=== PATIENT | female | born 1950 | race Caucasian/White ===

== ENCOUNTER → 2020-04-28 | Outpatient (REF) | payer MEDICARE, OTHER | LOC: M LAB REF 11:12 | PROVIDERS: ATTEND Nurse Practitioner Adult Health | DX: Z79.899 Other long term (current) drug therapy (principal) ==

== ENCOUNTER → 2020-09-22 | Outpatient (CLI) | payer MEDICARE, OTHER ==
--- NOTE | 2020-09-22 11:39 | REP ---
INDICATION: PAIN COMPARISON: None. TECHNIQUE: AP, lateral, bilateral oblique views left foot. FINDINGS: The osseous structures and joint spaces are intact and normal for age. Small calcaneal heel spur.. There is no evidence for acute fracture or dislocation. Surrounding soft tissues are unremarkable. No subcutaneous emphysema or radiodense foreign body. IMPRESSION: . No acute fracture or dislocation. <Electronically signed by Mani Osorio > 09/22/20 [id number]
--- NOTE | 2020-09-22 11:46 | REP ---
INDICATION: PAIN COMPARISON: None. TECHNIQUE: Four views left ankle. FINDINGS: There is no evidence of acute fracture, dislocation, or intrinsic bone disease.There is a small inferior calcaneal spur. The ankle mortise is anatomic. IMPRESSION: No fracture or dislocation. Mild inferior calcaneal spurring. <Electronically signed by Kun Alexandre > 09/22/20 [id number]
== END ==
LOC: M WUC 11:04
PROVIDERS: ATTEND Nurse Practitioner Adult Health
DX: M25.572 Pain in left ankle and joints of left foot (principal); M79.672 Pain in left foot

== ENCOUNTER → 2020-10-06 | Outpatient (CLI) | payer MEDICARE, OTHER ==
[~2020-10-06] MED LIST: PROHANCE 279.3MG/ML 15ML VIAL As Ordered ONE
--- NOTE | 2020-10-06 16:04 | REP ---
INDICATION: PERSONAL HISTORY OF MALIGNANT NEOPLASM OF BREAST. Status post bilateral lumpectomy in 2013. COMPARISON: Comparison bilateral breast MRI studies are dated June 30, 2018 and June 24, 2017. Comparison mammography March 09, 2018. TECHNIQUE: Three J[facility]yn MRI imaging was performed with a dedicated breast coil. Axial, coronal, and sagittal T1 and T2 weighted scans were obtained with and without fat saturation in the usual fashion. The study includes dynamically acquired post gadolinium-enhanced imaging with image subtraction. Maximum intensity projection and multi planar reformation imaging is included as well. This study is interpreted with the aid of ClearFitD, an FDA approved computer aided detection (CAD) software program, on a dedicated breast MRI workstation. The gadolinium enhancement dose is 12 mL of intravenous ProHance. FINDINGS: There is a moderate amount of fibroglandular tissue bilaterally corresponding with the mammographic pattern. There is post treatment fibrosis inferiorly and medially on the left and more laterally and inferiorly on the right. No chest wall abnormality is seen. There is minimal background parenchymal enhancement. There is no evidence of axillary lymphadenopathy or significant breast cystic change. High-resolution pre and post-contrast T1 and T2 weighted scans show no suspicious morphologic abnormality in either breast. Dynamically acquired sequential postcontrast images show no suspicious area of enhancement and washout kinetics in either breast to suggest malignancy. Subtraction images show no additional abnormality. IMPRESSION: BI-RADS category 2 benign stable bilateral breast MRI findings. <Electronically signed by Agus Copeland > 10/06/20 [id number]
== END ==
LOC: M RAD 10:50
PROVIDERS: ATTEND Physician Assistant
DX: Z85.3 Personal history of malignant neoplasm of breast (principal)
CPT/HCPCS: A9576; C8908

== ENCOUNTER → 2020-10-17 | Outpatient (CLI) | payer MEDICARE, OTHER ==
--- NOTE | 2020-10-17 16:16 | REP ---
INDICATION: LT ANKLE PAIN. COMPARISON: Radiographs 09/22/2020. TECHNIQUE: Multiple sequences are obtained in the axial, coronal and sagittal planes. FINDINGS: The Achilles, anterior tibial, posterior tibial, flexor hallucis longus, flexor digitorum longus and peroneal tendons are all intact without significant tenosynovitis. The anterior and posterior talofibular, calcaneofibular and deltoid ligaments appear intact. Plantar tendon appears intact. There is no plantar fasciitis. Sinus tarsi appears unremarkable. No ganglion cyst is seen. There is normal amount of joint fluid. The cartilaginous surfaces are smooth. No osteochondral defect is seen at the tibiotalar joint. There is mild marrow edema in the distal calcaneus. This is probably secondary to mild arthritic change at the calcaneocuboid joint. IMPRESSION: Mild marrow edema in the distal calcaneus likely secondary to mild arthritic change at the calcaneocuboid joint. Otherwise no abnormalities are seen. <Electronically signed by Kun Alexandre > 10/17/20 [id number]
== END ==
LOC: M PLARAD 13:02
PROVIDERS: ATTEND Orthopaedic Surgery
DX: M25.472 Effusion, left ankle (principal); M25.572 Pain in left ankle and joints of left foot

== ENCOUNTER → 2020-11-10 | Outpatient (CLI) | payer MEDICARE, OTHER ==
--- NOTE | 2020-11-10 11:05 | DEXAMM ---
INDICATION: OSTEOPENIA. COMPARISON: Comparison study 31 January 2017 and 10 February 2006.. TECHNIQUE: Bone density was measured using dual-energy x-ray absorptionmetry (DEXA). FINDINGS: AP SPINE L1-L4 BMD 1.075 g/cm2 Young Adult T-Score -1.0 Age Matched Z-Score 0.7. LT FEMUR, TOTAL BMD 0.730 g/cm2 Young Adult T-Score -2.2 Age Matched Z-Score -0.6. LT NECK BMD 0.769 g/cm2 Young Adult T-Score -1.9 Age Matched Z-Score -0.1. RT FEMUR, TOTAL BMD 0.797 g/cm2 Young Adult T-Score -1.7 Age Matched Z-Score -0.1. RT NECK BMD 0.777 g/cm2 Young Adult T-Score -1.9 Age Matched Z-Score -0.1. IMPRESSION: There is low bone density of the spine. There is low bone density of the left hip. There is low bone density of the right hip. The density of the spine has increased 6.9% since the initial exam on January 31, 2017. The density of the spine increased 6.3% since most recent exam on February 10, 2006. The density of the left hip has decreased 2.9% since initial exam on January 31, 2017. The density of the left hip has decreased 2.0% since most recent exam on February 10, 2006. The density of the right hip has increased 1.3% since the initial exam on January 31, 2017. The density of the right hip has increased 1.4% since the most recent exam on February 10, 2006. FOLLOW-UP: Recommendation for the next bone density exam: 2 years. <Electronically signed by Agus Copeland > 11/10/20 [id number]
== END ==
LOC: M WHC 09:06
PROVIDERS: ATTEND Nurse Practitioner Adult Health
DX: M81.0 Age-related osteoporosis without current pathological fracture (principal); M85.851 Other specified disorders of bone density and structure, right thigh; M85.852 Other specified disorders of bone density and structure, left thigh; M85.88 Other specified disorders of bone density and structure, other site

== ENCOUNTER → 2021-07-16 | Outpatient (REF) | payer MEDICARE, OTHER | LOC: M LAB REF 16:33 | PROVIDERS: ATTEND Nurse Practitioner Adult Health | DX: Z51.81 Encounter for therapeutic drug level monitoring (principal) ==

== ENCOUNTER → 2021-10-17 | Outpatient (CLI) | payer MEDICARE, OTHER ==
[~2021-10-17] MED LIST changes: -PROHANCE 279.3MG/ML 15ML VIAL As Ordered ONE; +PROHANCE 279.3MG/ML 15ML VIAL ONE
== END ==
LOC: M PLAIMG 12:22
PROVIDERS: ATTEND Surgery
DX: C50.912 Malignant neoplasm of unspecified site of left female breast (principal)
CPT/HCPCS: A9576; C8908

== ENCOUNTER → 2022-01-21 | Outpatient (REF) | payer MEDICARE, OTHER | LOC: M LAB REF 11:24 | PROVIDERS: ATTEND Nurse Practitioner Adult Health | DX: Z51.81 Encounter for therapeutic drug level monitoring (principal) ==

== ENCOUNTER → 2022-07-04 | Outpatient (REF) | payer MEDICARE, OTHER | LOC: M LAB REF 12:12 | PROVIDERS: ATTEND Nurse Practitioner Adult Health | DX: Z51.81 Encounter for therapeutic drug level monitoring (principal) ==

== ENCOUNTER → 2022-10-03 | Outpatient (CLI) | payer MEDICARE, OTHER | LOC: M WHC 12:35 | PROVIDERS: ATTEND Nurse Practitioner Adult Health | DX: E04.1 Nontoxic single thyroid nodule (principal) ==

== ENCOUNTER → 2022-10-03 | Outpatient (REF) | payer MEDICARE, OTHER | LOC: M LAB REF 18:17 | PROVIDERS: ATTEND Internal Medicine Endocrinology, Diabetes & Metabolism | DX: E04.1 Nontoxic single thyroid nodule (principal) ==

== ENCOUNTER → 2022-10-08 | Outpatient (REF) | payer MEDICARE, OTHER | LOC: M LAB REF 12:25 | PROVIDERS: ATTEND Nurse Practitioner Adult Health | DX: E21.4 Other specified disorders of parathyroid gland (principal) ==

== ENCOUNTER → 2022-11-11 | Outpatient (CLI) | payer MEDICARE, OTHER | LOC: M WHC 08:29 | PROVIDERS: ATTEND Nurse Practitioner Adult Health | DX: M81.0 Age-related osteoporosis without current pathological fracture (principal); M85.89 Other specified disorders of bone density and structure, multiple sites ==

== ENCOUNTER → 2022-12-06 | Outpatient (REF) | payer MEDICARE, OTHER | LOC: M LAB REF 17:44 | PROVIDERS: ATTEND Internal Medicine Endocrinology, Diabetes & Metabolism | DX: E04.2 Nontoxic multinodular goiter (principal) ==

== ENCOUNTER → 2023-01-17 | Outpatient (REF) | payer MEDICARE, OTHER | LOC: M LAB REF 12:32 | PROVIDERS: ATTEND Nurse Practitioner Adult Health | DX: M81.0 Age-related osteoporosis without current pathological fracture (principal); Z51.81 Encounter for therapeutic drug level monitoring ==

== ENCOUNTER → 2023-08-05 | Outpatient (REF) | payer MEDICARE, OTHER | LOC: M LAB REF 11:59 | PROVIDERS: ATTEND Internal Medicine | DX: Z79.899 Other long term (current) drug therapy (principal) ==

== ENCOUNTER → 2023-09-15 | Outpatient (CLI) | payer MEDICARE, OTHER | LOC: M WHC 11:32 | PROVIDERS: ATTEND Internal Medicine | DX: N95.0 Postmenopausal bleeding (principal); R93.89 Abnormal findings on diagnostic imaging of other specified body structures; N88.8 Other specified noninflammatory disorders of cervix uteri ==

== ENCOUNTER → 2024-02-10 | Outpatient (REF) | payer MEDICARE, OTHER | LOC: M LAB REF 16:24 | PROVIDERS: ATTEND Nurse Practitioner Adult Health | DX: M81.0 Age-related osteoporosis without current pathological fracture (principal) ==

== ENCOUNTER → 2024-05-06 | Outpatient (REF) | payer MEDICARE, OTHER | LOC: M LAB REF 16:38 | PROVIDERS: ATTEND Nurse Practitioner Family | DX: R30.0 Dysuria (principal); N76.89 Other specified inflammation of vagina and vulva ==

== ENCOUNTER → 2024-08-12 | Outpatient (REF) | payer MEDICARE, OTHER | LOC: M LAB REF 16:16 | PROVIDERS: ATTEND Nurse Practitioner Adult Health | DX: Z79.899 Other long term (current) drug therapy (principal) ==

== ENCOUNTER → 2024-11-29 | Outpatient (REF) | payer MEDICARE, OTHER | LOC: M LAB REF 12:33 | PROVIDERS: ATTEND Nurse Practitioner Adult Health | DX: R19.7 Diarrhea, unspecified (principal) ==

== ENCOUNTER 2025-03-03 08:54 | Day surgery (SDC) | payer MEDICARE, OTHER ==
[~2025-03-03] VITALS: Ht 154.9 cm; Wt 56.0 kg
[~2025-03-03 08:54] MED LIST changes: +ACET-897 PO; +ASCO500C3 PO; +ATOR1TAB19 PO; +BENA25CA4 PO; +CALC500T68 PO; +CLAR10CA3 PO; +COEN100T PO; +DENO60SY2 SQ; +FLAX1CAP5 PO; +FLON1SPR; +MAGN500T12 PO; -PROHANCE 279.3MG/ML 15ML VIAL ONE; +VITA100093 PO
[2025-03-03 10:27] VITALS: TEMP 97.9
[2025-03-03 10:44] VITALS: BP 125/60; O2SAT 100
== END 2025-03-03 10:55 | disposition home or self-care (01) ==
LOC: M OPP 08:54
PROVIDERS: ATTEND Surgery
DX: D12.6 Benign neoplasm of colon, unspecified (principal); R10.32 Left lower quadrant pain; K44.9 Diaphragmatic hernia without obstruction or gangrene; R10.84 Generalized abdominal pain; Z88.0 Allergy status to penicillin; Z88.5 Allergy status to narcotic agent; Z88.8 Allergy status to other drugs, medicaments and biological substances; Z91.048 Other nonmedicinal substance allergy status; Z79.51 Long term (current) use of inhaled steroids; Z79.899 Other long term (current) drug therapy

== ENCOUNTER 2025-04-28 15:53 | Emergency (ER) | payer MEDICARE, OTHER ==
[~2025-04-28] VITALS: Ht 154.9 cm; Wt 57.3 kg
[2025-04-28] MEDS ORDERED: SUCCINYLCHOLINE 100MG/5ML SYRINGE ONE (15:54)
[2025-04-28] MEDS ORDERED: ROCURONIUM BROMIDE 50MG/5ML VIAL ONE (15:54)
[2025-04-28] MEDS ORDERED: HYDR-3713 (16:07)
[2025-04-28] MEDS ORDERED: ASPI-1 (16:07)
[2025-04-28 17:29] LABS: INR 1.26
[2025-04-28 17:38] LABS: PLATELET COUNT, AUTOMATED 253 10^3/uL (150-450)
[2025-04-28] MEDS ORDERED: ISOVUE-370 76% 100 ML VIAL As Ordered ONE (17:55)
[2025-04-28 18:00] LABS: ALT/SGPT 24.0 U/L (7.0-40); AST/SGOT 53.0 U/L (<34); CALCIUM LEVEL 8.4 MG/DL (8.3-10.6); CARBON DIOXIDE LEVEL 24.0 MMOL/L (20-31); CHLORIDE LEVEL 103.0 MMOL/L (98-107); CREATININE FOR GFR 0.7 MG/DL (0.55-1.30); GLOMERULAR FILTRATION RATE 89.6 (>39); POTASSIUM SERUM 3.9 MMOL/L (3.5-5.1); SODIUM LEVEL 140.0 MMOL/L (136-145)
[2025-04-28 18:19] LABS: LYMPHOCYTES 3 % (16-44); METAMYELOCYTES 2 % (0-0); MONOCYTES 6 % (0-5); NEUTROPHILS 73 % (28-66)
[2025-04-28 18:20] LABS: PLATELET ESTIMATE NORMAL (NORMAL)
[2025-04-28] MEDS: MOXIFLOXACIN HCL 400 MG in IV 1 EA IV ONE (19:25)
[2025-04-28] MEDS ORDERED: MIDAZOLAM INJ 2 MG/2 ML VIAL IV PRN (20:00)
[2025-04-28] MEDS ORDERED: LIDOCAINE 2% 5 ML JELLY UROJET TOP ONE (20:00)
[2025-04-28] MEDS ORDERED: CETACAINE SPRAY 5 GM TOP ONE (20:15)
[2025-04-28] MEDS ORDERED: CETACAINE SPRAY 5 GM As Ordered ONE (20:15)
[2025-04-28] MEDS: MIDAZOLAM INJ 2 MG/2 ML VIAL IV ONE ×2 (20:17→20:44)
[2025-04-28] MEDS: CETACAINE SPRAY 5 GM TOP STA (20:18)
[2025-04-28] MEDS ORDERED: PHENYLEPHRINE 10MG/ML 1ML VIAL As Ordered ONE (20:46)
[2025-04-28] MEDS ORDERED: SUGAMMADEX SODIUM 500 MG/5 ML VIAL As Ordered ONE (20:49)
[2025-04-28 21:03] VITALS: BP 116/56
== END 2025-04-28 21:24 | disposition short-term general hospital (02) ==
LOC: M ED 15:53
DX: S27 Injury of other and unspecified intrathoracic organs (principal); T81.82XA Emphysema (subcutaneous) resulting from a procedure, initial encounter; X58.XXXA Exposure to other specified factors, initial encounter; Y92.9 Unspecified place or not applicable; Y93.9 Activity, unspecified; Y99.9 Unspecified external cause status; J98.11 Atelectasis; J91.8 Pleural effusion in other conditions classified elsewhere; E78.5 Hyperlipidemia, unspecified; J30.2 Other seasonal allergic rhinitis; Z79.899 Other long term (current) drug therapy; Z88.0 Allergy status to penicillin; Z88.5 Allergy status to narcotic agent; Z88.8 Allergy status to other drugs, medicaments and biological substances
CPT/HCPCS: 31622; 36415; 71045; 71260; 80047; 80048; 80076; 85025; 85610; 87040; 93005; 93041; 94760; 96365; 96366; 99291; 99292; J0330; J2250; J2280; Q9967